=== PATIENT | female | born 1955 | race African-American/Black ===

== ENCOUNTER 2018-08-19 19:15 | Inpatient (IN) | payer MEDICAID ==
[~2018-08-19] VITALS: Ht 167.6 cm; Wt 102.0 kg
[2018-08-19] MEDS ORDERED: MORPHINE SULFATE 4 MG/ML SYR/VIAL IV ONE (22:00)
[2018-08-19] MEDS ORDERED: ONDANSETRON HCL 4 MG/2 ML VIAL IV ONE (22:00)
[2018-08-19 22:50] LABS: Urine Bacteria MOD /hpf (None Seen); Urine Blood 1+ /uL (Negative); Urine Mucus FEW (None Seen); Urine Specific Gravity 1.019 (1.001-1.035); Urine WBC 42 /hpf (0 - 5)
[2018-08-19 23:03] LABS: Basophils # (auto) 0.1 uL; Basophils % (auto) 1.1 % (0.0-2.0); Eosinophils # (auto) 0.1 uL; Hematocrit 30.8 % (36.0-46.0); Lymphocytes # (auto) 1.9 uL; Lymphocytes % (auto) 36.5 % (10.0-50.0); Mean Corpuscular Hemoglobin 27.2 pg (28.0-32.0); Mean Corpuscular Hgb Conc. 32.3 g/dL (32.0-36.0); Mean Corpuscular Volume 84.1 fL (80.0-100.0); Monocytes # (auto) 0.9 uL; Monocytes % (auto) 16.8 % (0.0-12.0); Neutrophils # (auto) 2.2 uL; Neutrophils % (auto) 43.6 % (37.0-80.0); Nucleated Red Blood Cells % 0.1 %; Platelet Count (auto) 174 10^3/uL (140-450); Red Blood Cells 3.66 10^6/uL (4.0-5.20); White Blood Cell 5.1 10^3/uL (4.4-10.8)
[2018-08-19 23:13] LABS: Albumin 2.7 g/dL (3.4-5.0); BUN/Creatinine Ratio 14.2; Calcium 8.9 mg/dL (8.5-10.1); Magnesium 1.9 mg/dL (1.6-2.6); Potassium 4.4 mmol/L (3.5-5.1)
[2018-08-19 23:18] LABS: Bilirubin, Total 0.5 mg/dL (0.2-1.0); Total Protein 7.3 g/dL (6.4-8.2)
[2018-08-19 23:35] LABS: INR 1.01 (0.9-1.15); Partial Thromboplastin Time 24.6 sec (23.64-32.05)
[2018-08-20] VITALS (8 sets, daily range): BP systolic 123–149; BP diastolic 59–70
[2018-08-20] MEDS ORDERED: CEFTRIAXONE SODIUM 2 GM in D5W 5% 50 ML IV ONE (01:00)
[2018-08-20] MEDS ORDERED: cefTRIAXone 1GM/50ML D5W 100 ML IV ONE (01:09)
[2018-08-20] MEDS ORDERED: TEMAZEPAM 15 MG CAP PO PRN (01:45)
[2018-08-20] MEDS ORDERED: ONDANSETRON HCL 4 MG/2 ML VIAL IV PRN (01:45)
[2018-08-20] MEDS ORDERED: ALBUTEROL SULF 2.5 MG/0.5ML(0.5%) NEB SOLN NEB PRN (01:45)
[2018-08-20] MEDS ORDERED: DEXTROSE (50%) 50ML SYRG IV PRN (01:45)
[2018-08-20] MEDS ORDERED: ACETAMINOPHEN 500 MG TAB PO PRN (01:45)
--- NOTE | 2018-08-20 02:45 | NUR ---
MS admit from ER ZURDO CHRISTIE admitted to tele/MS. Patient oriented to ANNIE GONZALEZ, primary RN, unit, room, bed, and unit policies regarding patient care and visiting hours. Patient weighed by bedscale and encouraged to call if they need something. All questions and concerns addressed, patient verbalized understanding.
[2018-08-20] MEDS: HYDROcodone-ACET 5/325MG TAB PO PRN ×3 (02:58→21:19)
--- NOTE | 2018-08-20 05:30 | NUR ---
Rounds Patient resting in bed comfortably, with even and unlabored respirations at 16bpm. No S/S of distress/SOB or pain. Will continue to monitor changes q1hr and PRN. Call light with in reach.
[2018-08-20 05:51] LABS: Hematocrit 28.5 % (36.0-46.0); Hemoglobin 9.2 g/dL (12.2-16.2); Mean Corpuscular Hgb Conc. 32.3 g/dL (32.0-36.0); Mean Corpuscular Volume 83.5 fL (80.0-100.0); Platelet Count (auto) 154 10^3/uL (140-450); Red Blood Cells 3.41 10^6/uL (4.0-5.20); White Blood Cell 4.2 10^3/uL (4.4-10.8)
[2018-08-20 05:56] LABS: Basophils % (manual) 0 (0.0-2.0); Blast Cells 0; Eosinophils % (manual) 0 (0-7); Metamyelocytes % 0; Myelocytes % 0; Promyelocytes % 0; Reactive Lymphocytes 0
[2018-08-20 06:13] LABS: BUN/Creatinine Ratio 14.4; Calcium 8.5 mg/dL (8.5-10.1); Potassium 3.9 mmol/L (3.5-5.1)
[2018-08-20] MEDS: PANTOPRAZOLE 40 MG TAB PO SCH (06:36)
[2018-08-20] MEDS: ACCU-CHEK COMFORT CURVE STRIP VI SCH ×4 (06:36→21:06)
[2018-08-20] MEDS: InsuLIN REG 1unit/0.01ml Soln (100units/ml) SC SCH ×4 (06:43→21:10)
[2018-08-20 09:19] LABS: Band Neutrophils % (manual) 1; Lymphocytes % (manual) 39 (10.0-50.0); Monocytes % (manual) 15 (0-12)
[2018-08-20] MEDS: GABAPENTIN 300 MG CAP PO SCH ×2 (10:02→21:05)
[2018-08-20] MEDS: LOSARTAN POTASSIUM 50 MG TAB PO SCH (10:02)
--- NOTE | 2018-08-20 10:09 | NUR ---
RE: blood pressure medications bp 130/67, hr 58. carvedilol hold per hr at 58. will reassess patient.
--- NOTE | 2018-08-20 10:55 | NUR ---
Respiratory note: ASSESSED PT FOR PRN TX PT WAS ASLEEP AND ALERT NO RESP DISTRESS NOTED. HR 57, RR 16, SPO2 98% ON 2L N/C. BS ARE DIMINISHED . PT KNOWS TO HAVE RT PAGED IF TX IS NEEDED.
[2018-08-20 12:44] LABS: Phosphorus 4.5 mg/dL (2.5-4.90)
[2018-08-20] MEDS: CARVEDILOL 3.125 MG TAB PO SCH ×2 (13:29→21:05)
--- NOTE | 2018-08-20 14:15 | NUR ---
re: meals Patients family members brought the patient some fast food. Patient was seen eating a hamburger.
--- NOTE | 2018-08-20 14:20 | NUR ---
IV removal IV DC'd with clean sterile technique, catheter fully intact. Pressure dressing applied to site. Patient tolerated well. NOTE:
--- NOTE | 2018-08-20 15:20 | NUR ---
IV insertion IV access obtained, via clean sterile technique by inserting 20 gauge catheter at after attempt(s). IV secured properly. No trauma to site. Patient tolerated well. NOTE:
[2018-08-20] MEDS: SODIUM CHLORIDE 0.9% 1,000 ML IV SCH (17:08)
[2018-08-20] MEDS: FUROSEMIDE 40 MG/4 ML VIAL IV SCH (17:15)
--- NOTE | 2018-08-20 19:10 | NUR ---
Respiratory note: ASSESSED PT FOR PRN TX. PT IS CURRENTLY ON 2 L/M NC: HR 68, RR 18, SPO2 96%. MED NEB TX NOT INDICATED AT THIS TIME. PT SHOWS NO S/S OR DISTRESS. INFORMED PT IF SOB TO CONTACT RESPIRATORY FOR BREATHING TX. WILL CONTINUE TO MONITOR.
--- NOTE | 2018-08-20 19:30 | NUR ---
OPENING NOTE REPORT RECEIVED FROM DAY SHIFT RN. PATIENT IS A/OX4 RESTING IN BED. NO S/S OF DISTRESS NOTED. IV NOTED TO LEFT UPPER ARM, INTACT AND PATENT. PHYSICAL ASSESSMENT DONE-SEE INTERVENTIONS. POC FOR TONIGHT DISCUSSED AND ALL QUESTIONS ANSWERED. WILL MONITOR Q1H PRN THROUGHOUT SHIFT. CALL LIGHT WITHIN REACH.
[2018-08-20] MEDS: cefTRIAXone 1GM/50ML D5W 50 ML IV SCH (21:04)
[2018-08-20] MEDS: ATORVASTATIN 20 MG TAB PO SCH (21:05)
[2018-08-21 03:03] LABS: Creatinine, Urine 53 mg/dL (30.0-125.0); Sodium Urine 91 mmol/L (40-220)
[2018-08-21 05:17] LABS: Basophils # (auto) 0 uL; Eosinophils # (auto) 0.1 uL; Hemoglobin 9.4 g/dL (12.2-16.2); Lymphocytes % (auto) 43.3 % (10.0-50.0); Mean Corpuscular Hemoglobin 27.2 pg (28.0-32.0); Mean Corpuscular Hgb Conc. 32.6 g/dL (32.0-36.0); Mean Corpuscular Volume 83.4 fL (80.0-100.0); Monocytes # (auto) 0.7 uL; Monocytes % (auto) 15.7 % (0.0-12.0); Neutrophils # (auto) 1.7 uL; Nucleated Red Blood Cells % 0.1 %; Platelet Count (auto) 169 10^3/uL (140-450); Red Blood Cells 3.47 10^6/uL (4.0-5.20); Red Cell Distribution Width 14.8 % (11.8-14.3); White Blood Cell 4.5 10^3/uL (4.4-10.8)
[2018-08-21 05:27] VITALS: BP 146/74
[2018-08-21 05:30] LABS: Magnesium 1.9 mg/dL (1.6-2.6); Potassium 4.2 mmol/L (3.5-5.1)
[2018-08-21 05:38] LABS: Albumin 2.3 g/dL (3.4-5.0); BUN/Creatinine Ratio 16.7; Bilirubin, Total 0.2 mg/dL (0.2-1.0); Calcium 8.7 mg/dL (8.5-10.1); Total Protein 6.6 g/dL (6.4-8.2)
[2018-08-21] MEDS: ACCU-CHEK COMFORT CURVE STRIP VI SCH ×4 (06:17→21:44)
[2018-08-21] MEDS: FUROSEMIDE 40 MG/4 ML VIAL IV SCH ×2 (06:17→17:45)
[2018-08-21] MEDS: SODIUM CHLORIDE 0.9% 1,000 ML IV SCH ×2 (06:17→19:53)
[2018-08-21] MEDS: PANTOPRAZOLE 40 MG TAB PO SCH (06:17)
[2018-08-21] MEDS: InsuLIN REG 1unit/0.01ml Soln (100units/ml) SC SCH ×4 (06:20→21:51)
--- NOTE | 2018-08-21 06:20 | NUR ---
MED REFUSAL PATIENT BLOOD GLUCOSE 165 PATIENT REFUSING INSULIN PE SLIDING SCALE PATIENT STATES, "IT'LL RUN IT DOWN AND DARRIUS BEEN IN THE 30'S BEFORE" EDUCATED PATIENT ON GLYCEMIC CONTROL IMPORTANCE. PATIENT STILL REFUSING AND STATES, "IT'S NOT BAD"
[2018-08-21] MEDS: HYDROcodone-ACET 5/325MG TAB PO PRN ×2 (06:33→19:52)
--- NOTE | 2018-08-21 06:56 | NUR ---
CLOSING NOTE PATIENT IS RESTING AT THIS TIME. NO S/S OF DISTRESS. CALL LIGHT WITHIN REACH. WILL ENDORSE CARE TO AM NURSE.
[2018-08-21] MEDS ORDERED: GABA300C10 PO (07:12)
[2018-08-21] MEDS ORDERED: LOSA-49 PO (07:12)
[2018-08-21] MEDS ORDERED: ATOR40TA52 PO (07:12)
[2018-08-21] MEDS ORDERED: ERGO1CAP23 PO (07:13)
[2018-08-21 08:18] VITALS: BP 120/83
[2018-08-21 08:30] VITALS: BP 146/66
[2018-08-21] MEDS ORDERED: ALBUMIN 25% 100 ML IV ONE (08:30)
[2018-08-21] MEDS: LOSARTAN POTASSIUM 50 MG TAB PO SCH (10:33)
[2018-08-21] MEDS: GABAPENTIN 300 MG CAP PO SCH ×2 (10:34→21:44)
[2018-08-21] MEDS: CARVEDILOL 3.125 MG TAB PO SCH ×2 (10:35→21:43)
[2018-08-21] MEDS: ENOXAPARIN SOD 30 MG/0.3 ML SYRINGE SC SCH (10:36)
--- NOTE | 2018-08-21 12:15 | NUR ---
RE: URINE INFORMED PATIENT THAT WE NEED TO COLLECT URINE AND MONITOR THE URINE OUT PUT, THUS NEEDS TO MATURATE ON THE COLLECTING HAT IN THE BATHROOM. EDUCATED ON THE REASONS WE ARE COLLECTING IT.
[2018-08-21 12:34] VITALS: BP 161/71
[2018-08-21 16:58] VITALS: BP 154/78
--- NOTE | 2018-08-21 19:20 | NUR ---
OPENING NOTE REPORT RECEIVED FROM DAY SHIFT RN PATIENT IS A/OX4 RESTING IN BED. NO S/S OF DISTRESS NOTED. PHYSICAL ASSESSMENT DONE-SEE INTERVENTIONS.POC FOR TONIGHT DISCUSSED, ALL QUESTIONS ANSWERED. WILL MONITOR Q1H PRN THROUGHOUT SHIFT. CALL LIGHT WITHIN REACH.
--- NOTE | 2018-08-21 20:44 | NUR ---
ASSESSED PT @ THIS TIME FOR PRN MED NEB TX. PT IS AWAKE AND ALERT AND SITTING UP IN BED. SHE STATES HER BREATHING IS DOING FINE. CURRENTLY ON R/A SPO2 93%, HR 77, RR 18 AND BS ARE DIMINISHED T/O. NO DISTRESS NOTED. SHE IS AWARE TO CALL IF SHE FEELS SOB.
[2018-08-21] MEDS: cefTRIAXone 1GM/50ML D5W 50 ML IV SCH (21:42)
[2018-08-21] MEDS: ATORVASTATIN 20 MG TAB PO SCH (21:43)
[2018-08-21 22:00] VITALS: BP 165/78
[2018-08-22 05:00] VITALS: BP 168/76
[2018-08-22] MEDS: FUROSEMIDE 40 MG/4 ML VIAL IV SCH (06:03)
[2018-08-22] MEDS: ACCU-CHEK COMFORT CURVE STRIP VI SCH ×3 (06:03→17:40)
[2018-08-22] MEDS: PANTOPRAZOLE 40 MG TAB PO SCH (06:03)
[2018-08-22] MEDS: InsuLIN REG 1unit/0.01ml Soln (100units/ml) SC SCH ×3 (06:21→17:00)
[2018-08-22 06:26] LABS: Potassium 3.6 mmol/L (3.5-5.1)
[2018-08-22 06:35] LABS: BUN/Creatinine Ratio 20.6; Calcium 8.9 mg/dL (8.5-10.1); Magnesium 1.8 mg/dL (1.6-2.6); Phosphorus 3.3 mg/dL (2.5-4.90)
--- NOTE | 2018-08-22 06:53 | NUR ---
CLOSING PATIENT IS SLEEPING AT THIS TIME. NO S/S OF DISTRESS NOTED. AWAITING NEPHRO CONSULT FOR TODAY. CALL LIGHT WITHIN REACH. WILL ENDORSE CARE TO DAY SHIFT RN.
--- NOTE | 2018-08-22 07:30 | NUR ---
Opening Shift Note Assumed care of patient, awake and alert. No S/S of distress/SOB or pain. Instructed on POC and to call for assist PRN, will continue to monitor for changes Q1hr and PRN.
[2018-08-22 09:00] VITALS: BP 180/81
[2018-08-22] MEDS: GABAPENTIN 300 MG CAP PO SCH (11:16)
[2018-08-22] MEDS: ENOXAPARIN SOD 30 MG/0.3 ML SYRINGE SC SCH (11:17)
[2018-08-22] MEDS: LOSARTAN POTASSIUM 50 MG TAB PO SCH (11:17)
[2018-08-22] MEDS: HYDROcodone-ACET 5/325MG TAB PO PRN (11:18)
--- NOTE | 2018-08-22 11:50 | NUR ---
Nutrition Assessment Notes please see attached link for complete assessment Est. Needs ABW [id number] kcal (20-23 kcal/kgBW), 64-80 gms pro (0.8-1.0 gms/kgBW r/t elev RFT CKD). Will continue to monitor pertinent labs and reassess nutrient need prn Addendum: 08/22/18 at [address] Amended: Links added.
--- NOTE | 2018-08-22 12:26 | NUR ---
BLOOD PRESSURE 205/85 DR. PEOPLES PAGED. AWAITING ORDERS.
[2018-08-22 13:00] VITALS: BP 205/85
[2018-08-22] MEDS ORDERED: METOPROLOL TARTRATE 1MG/1ML-5ML VIAL IV ONE (13:00)
--- NOTE | 2018-08-22 13:00 | NUR ---
Respiratory note: PT ASSESSED FOR PRN MEDNEB TX. NO RESPIRATORY DISTRESS NOTED. SPO2 96% ON RA HR 61 RR 20 B/S CLEAR. PT AWARE TO HAVE RT PAGED IF THEY BECOME SOB.
--- NOTE | 2018-08-22 14:28 | NUR ---
SPOKE WITH DR. BUSBY. HE INFORMED ME THAT THE PATIENT'S INSURANCE IS OUT OF TOWN. THE PATIENT NEEDS TO SEE A PRIMARY AND BE REFERED TO NEPHROLOGY. DR. BUSBY REQUESTED THAT THE PATIENT'S DISCHARGE BE HELD UNTIL THIS INSURANCE ISSUE IS WORKED OUT. RECOMMENDS SOCIAL SERVICE CONSULT. DR. PEOPLES INFORMED.
--- NOTE | 2018-08-22 14:35 | NUR ---
SPOKE WITH DR. PEOPLES. HE DOES NOT WANT TO HOLD THE DISCHARGE. THE PATIENT IS DIRECTED TO GET IN CONTACT WITH DR. SANDERS'S OFFICE FOR FOLLOW UP AND REFERRAL TO NEPHROLOGY.
[2018-08-22 16:41] VITALS: BP 175/83
--- NOTE | 2018-08-22 17:36 | NUR ---
Discharge instructions given as ordered. Encourage to follow up with Dr. Theodore as instructed. All questions and concerns addressed. Patient verbalized understanding. IV removed with catheter intact, pressure dressing applied. Patient taken to vehicle via wheelchair with all personal belongings, accompanied by family member. No distress noted at time of departure.
[2018-08-22] MEDS ORDERED: CARVEDILOL 3.125 MG TAB PO SCH (22:00)
== END 2018-08-22 17:36 | disposition home or self-care (01) | DRG 469 ==
LOC: ER 19:32 → OVERFLOW 19:33 → WEST WING 08-20 02:34
PROVIDERS: ADMIT Nurse Practitioner Family; ATTEND Internal Medicine
DX: N17.9 Acute kidney failure, unspecified (principal); E11.40 Type 2 diabetes mellitus with diabetic neuropathy, unspecified; E11.21 Type 2 diabetes mellitus with diabetic nephropathy; E44.0 Moderate protein-calorie malnutrition; N12 Tubulo-interstitial nephritis, not specified as acute or chronic; N18.4 Chronic kidney disease, stage 4 (severe); E11.65 Type 2 diabetes mellitus with hyperglycemia; E11.22 Type 2 diabetes mellitus with diabetic chronic kidney disease; E66.9 Obesity, unspecified; M43.16 Spondylolisthesis, lumbar region; M48.061 Spinal stenosis, lumbar region without neurogenic claudication; D63.8 Anemia in other chronic diseases classified elsewhere; I13.10 Hypertensive heart and chronic kidney disease without heart failure, with stage 1 through stage 4 chronic kidney disease, or unspecified chronic kidney disease; M17.0 Bilateral primary osteoarthritis of knee; Z79.4 Long term (current) use of insulin; Z83.3 Family history of diabetes mellitus; Z68.34 Body mass index [BMI] 34.0-34.9, adult; Z90.11 Acquired absence of right breast and nipple; Z90.49 Acquired absence of other specified parts of digestive tract
CPT/HCPCS: 36415; 71046; 72131; 74176; 76775; 80048; 80053; 80061; 81001; 82043; 82150; 82306; 82570; 82607; 82962; 83036; 83690; 83735; 83880; 83970; 84100; 84300; 85007; 85025; 85027; 85610; 85730; 87086; 93306; 96365; 96375; G0378; J0696; J1815; J2405; J7060; P9047

== ENCOUNTER 2018-08-28 13:50 | Emergency (ER) | payer MEDICAID ==
[~2018-08-28] VITALS: Ht 167.6 cm; Wt 98.9 kg
[~2018-08-28 13:50] MED LIST: ATOR40TA52 PO; ERGO1CAP23 PO; GABA300C10 PO; LOSA-49 PO
[2018-08-28 17:10] VITALS: BP 142/69
[2018-08-28 17:47] LABS: Urine Bacteria NONE SEEN /hpf (None Seen); Urine Blood TRACE /uL (Negative); Urine Hyaline Cast FEW /lpf (0 - 2); Urine Specific Gravity 1.012 (1.001-1.035); Urine WBC 1 /hpf (0 - 5)
[2018-08-28] MEDS ORDERED: HYDROcodone-ACET 5/325MG TAB PO ONE (18:00)
== END 2018-08-28 18:54 | disposition home or self-care (01) ==
LOC: ER 13:58
DX: N83.209 Unspecified ovarian cyst, unspecified side (principal); E11.22 Type 2 diabetes mellitus with diabetic chronic kidney disease; I12.9 Hypertensive chronic kidney disease with stage 1 through stage 4 chronic kidney disease, or unspecified chronic kidney disease; N18.3 Chronic kidney disease, stage 3 (moderate); Z79.899 Other long term (current) drug therapy; Z90.49 Acquired absence of other specified parts of digestive tract
CPT/HCPCS: 81001

== ENCOUNTER 2019-01-16 17:01 | Emergency (ER) | payer MEDICAID ==
[~2019-01-16] VITALS: Ht 167.6 cm; Wt 97.5 kg
[~2019-01-16 17:01] MED LIST changes: +LOSA-39 PO; -LOSA-49 PO
[2019-01-16 18:29] LABS: Urine Bacteria FEW /hpf (None Seen); Urine Blood TRACE /uL (Negative); Urine Specific Gravity 1.013 (1.001-1.035); Urine WBC 1 /hpf (0 - 5)
[2019-01-16 18:31] LABS: Basophils # (auto) 0.1 uL; Basophils % (auto) 1.5 % (0.0-2.0); Eosinophils # (auto) 0.2 uL; Eosinophils % (auto) 2.7 % (0.0-7.0); Hematocrit 33.5 % (36.0-46.0); Hemoglobin 10.9 g/dL (12.2-16.2); Lymphocytes # (auto) 1.8 uL; Lymphocytes % (auto) 31.3 % (10.0-50.0); Mean Corpuscular Hemoglobin 27.3 pg (28.0-32.0); Mean Corpuscular Hgb Conc. 32.5 g/dL (32.0-36.0); Mean Corpuscular Volume 83.9 fL (80.0-100.0); Monocytes # (auto) 0.9 uL; Monocytes % (auto) 16.2 % (0.0-12.0); Neutrophils # (auto) 2.7 uL; Neutrophils % (auto) 48.3 % (37.0-80.0); Nucleated Red Blood Cells % 0.1 %; Platelet Count (auto) 171 10^3/uL (140-450); Red Blood Cells 3.99 10^6/uL (4.0-5.20); White Blood Cell 5.7 10^3/uL (4.4-10.8)
[2019-01-16 18:40] LABS: Albumin 3.1 g/dL (3.4-5.0); Calcium 8.8 mg/dL (8.5-10.1); Potassium 4.5 mmol/L (3.5-5.1)
[2019-01-16 18:47] LABS: BUN/Creatinine Ratio 18.1; Bilirubin, Total 0.3 mg/dL (0.2-1.0); Total Protein 7.8 g/dL (6.4-8.2)
== END 2019-01-16 20:53 | disposition home or self-care (01) ==
LOC: ER 17:07
DX: K59.00 Constipation, unspecified (principal); E11.22 Type 2 diabetes mellitus with diabetic chronic kidney disease; I12.9 Hypertensive chronic kidney disease with stage 1 through stage 4 chronic kidney disease, or unspecified chronic kidney disease; N18.9 Chronic kidney disease, unspecified; Z85.3 Personal history of malignant neoplasm of breast; Z90.49 Acquired absence of other specified parts of digestive tract; Z79.899 Other long term (current) drug therapy
CPT/HCPCS: 36415; 74176; 80053; 81001; 82962; 83690; 85025; 93005

== ENCOUNTER 2019-05-16 13:32 | Emergency (ER) | payer MEDICARE, MEDICAID ==
[~2019-05-16] VITALS: Ht 167.6 cm; Wt 112.0 kg
[2019-05-16 14:08] VITALS: BP 157/82
[2019-05-16] MEDS ORDERED: KETOROLAC TROMETH 60MG/2ML VIAL IM ONE (15:00)
[2019-05-16] MEDS ORDERED: ACETAMINOPHEN 500 MG TAB PO ONE (15:00)
== END 2019-05-16 15:30 | disposition home or self-care (01) ==
LOC: ER 13:32
DX: T78.40XA Allergy, unspecified, initial encounter (principal); R51 Headache; R07.89 Other chest pain; R09.81 Nasal congestion; I12.9 Hypertensive chronic kidney disease with stage 1 through stage 4 chronic kidney disease, or unspecified chronic kidney disease; E11.22 Type 2 diabetes mellitus with diabetic chronic kidney disease; N18.9 Chronic kidney disease, unspecified; X58.XXXA Exposure to other specified factors, initial encounter

== ENCOUNTER 2019-08-10 14:50 | Emergency (ER) | payer OTHER, MEDICAID ==
[~2019-08-10] VITALS: Ht 167.6 cm; Wt 95.3 kg
[2019-08-10] MEDS ORDERED: SODIUM CHLORIDE 0.9% 1,000 ML IVB ONE (15:28)
[2019-08-10] MEDS ORDERED: MORPHINE SULFATE 4 MG/ML SYR/VIAL IV ONE (15:30)
[2019-08-10] MEDS ORDERED: ONDANSETRON HCL 4 MG/2 ML VIAL IV ONE (15:30)
[2019-08-10] MEDS ORDERED: KETOROLAC TROMETH 30 MG/ML 1ML VIAL IV ONE (15:30)
[2019-08-10 15:48] LABS: White Blood Cell 3.9 10^3/uL (4.4-10.8)
[2019-08-10 15:49] LABS: Hemoglobin 10.5 g/dL (12.2-16.2); Mean Corpuscular Hemoglobin 27.4 pg (28.0-32.0); Mean Corpuscular Hgb Conc. 33.9 g/dL (32.0-36.0); Platelet Count (auto) 209 10^3/uL (140-450); Red Blood Cells 3.82 10^6/uL (4.0-5.20); Red Cell Distribution Width 16.3 % (11.8-14.3)
[2019-08-10 15:53] LABS: Band Neutrophils % (manual) 0; Basophils % (manual) 0 (0.0-2.0); Blast Cells 0; Metamyelocytes % 0; Myelocytes % 0; Promyelocytes % 0; Reactive Lymphocytes 0
[2019-08-10 15:57] LABS: Potassium 3.7 mmol/L (3.5-5.1)
[2019-08-10 15:58] LABS: Calcium 8.7 mg/dL (8.5-10.1)
[2019-08-10 16:01] LABS: BUN/Creatinine Ratio 10.5; Bilirubin, Total 0.4 mg/dL (0.2-1.0); Total Protein 7.6 g/dL (6.4-8.2)
[2019-08-10 17:06] LABS: Eosinophils % (manual) 2 (0-7); Lymphocytes % (manual) 34 (10.0-50.0); Monocytes % (manual) 14 (0-12)
[2019-08-10] MEDS ORDERED: cloNIDine HCL 0.1 MG TAB PO ONE (21:45)
[2019-08-10 22:50] VITALS: BP 185/50
== END 2019-08-10 23:00 | disposition home or self-care (01) ==
LOC: ER 14:50
DX: R10.9 Unspecified abdominal pain (principal); I12.9 Hypertensive chronic kidney disease with stage 1 through stage 4 chronic kidney disease, or unspecified chronic kidney disease; E11.22 Type 2 diabetes mellitus with diabetic chronic kidney disease; N18.9 Chronic kidney disease, unspecified
CPT/HCPCS: 36415; 74176; 80053; 83690; 85007; 85027

== ENCOUNTER 2020-04-13 11:22 | Inpatient (IN) | payer OTHER, MEDICAID ==
[~2020-04-13] VITALS: Ht 167.6 cm; Wt 77.1 kg
[2020-04-13 13:16] LABS: Basophils # (auto) 0 10 ^3/uL (0-0.2); Eosinophils # (auto) 0.1 10 ^3/uL (0-0.8); Hemoglobin 9.9 g/dL (12.2-16.2); Lymphocytes # (auto) 1.4 10 ^3/uL (0.4-5.4); Mean Corpuscular Hemoglobin 26.4 pg (28.0-32.0); Monocytes # (auto) 0.6 10 ^3/uL (0-1.3); Neutrophils # (auto) 2.4 10 ^3/uL (1.6-8.6); Platelet Count (auto) 194 10^3/uL (140-450); White Blood Cell 4.5 10^3/uL (4.4-10.8)
[2020-04-13 13:18] LABS: Eosinophils % (auto) 2.3 % (0.0-7.0); Hematocrit 30.7 % (36.0-46.0); Lymphocytes % (auto) 30.5 % (10.0-50.0); Mean Corpuscular Hgb Conc. 32.2 g/dL (32.0-36.0); Monocytes % (auto) 13.6 % (0.0-12.0); Neutrophils % (auto) 52.6 % (37.0-80.0); Nucleated Red Blood Cells % 0.1 %; Red Blood Cells 3.74 10^6/uL (4.0-5.20); Red Cell Distribution Width 17.9 % (11.8-14.3)
[2020-04-13] MEDS ORDERED: MORPHINE SULF INJ 2 MG/ML SYRINGE 1ML IV ONE (13:30)
[2020-04-13] MEDS ORDERED: ONDANSETRON HCL 4 MG/2 ML VIAL IV ONE (13:30)
[2020-04-13 13:46] LABS: Albumin 3.2 g/dL (3.4-5.0); Calcium 9.1 mg/dL (8.5-10.1); Potassium 3.8 mmol/L (3.5-5.1)
[2020-04-13 13:49] LABS: BUN/Creatinine Ratio 13.4; Bilirubin, Total 0.4 mg/dL (0.2-1.0); Total Protein 8.2 g/dL (6.4-8.2)
[2020-04-13 14:12] LABS: Magnesium 1.6 mg/dL (1.6-2.6)
[2020-04-13 15:16] LABS: Urine Bacteria FEW /hpf (None Seen); Urine Blood TRACE /uL (Negative); Urine Specific Gravity 1.013 (1.001-1.035); Urine WBC 1 /hpf (0 - 5)
[2020-04-13] MEDS ORDERED: MORPHINE SULF INJ 2 MG/ML SYRINGE 1ML IV PRN ×2 (15:45→17:00)
[2020-04-13] MEDS ORDERED: hydrALAZINE HCL 20 MG/ML VL IV ONE (15:45)
[2020-04-13] MEDS ORDERED: NITROGLYCERIN 0.4 MG SL TAB SL PRN (15:45)
[2020-04-13] MEDS ORDERED: AMLO-489 PO (16:28)
[2020-04-13] MEDS ORDERED: CARV3.1240 PO (16:31)
[2020-04-13] MEDS ORDERED: ALBUTEROL SULF 2.5 MG/0.5ML(0.5%) NEB SOLN NEB PRN (17:00)
[2020-04-13] MEDS ORDERED: ACETAMINOPHEN 500 MG TAB PO PRN (17:00)
[2020-04-13] MEDS ORDERED: DEXTROSE (50%) 50ML SYRG IV PRN (17:00)
[2020-04-13] MEDS ORDERED: traMADol HCL 50 MG TAB PO PRN (17:00)
[2020-04-13] MEDS ORDERED: cefTRIAXone 1GM/50ML D5W 50 ML IV ONE (17:00)
[2020-04-13] MEDS: SODIUM CHLORIDE 0.9% 1,000 ML IV SCH (17:00)
[2020-04-13] MEDS ORDERED: TEMAZEPAM 15 MG CAP PO PRN (17:00)
[2020-04-13] MEDS ORDERED: ONDANSETRON HCL 4 MG/2 ML VIAL IV PRN (17:00)
[2020-04-13] MEDS: FAMOTIDINE 20 MG TAB PO SCH (17:45)
[2020-04-13] MEDS: ACCU-CHEK COMFORT CURVE STRIP VI SCH ×2 (18:08→21:46)
[2020-04-13] MEDS: ALBUTEROL SULF 2.5 MG/0.5ML(0.5%) NEB SOLN NEB SCH ×2 (18:09→23:53)
[2020-04-13] MEDS: IPRATROPIUM BROM 0.5 MG/2.5ML INH SOL NEB SCH ×2 (18:09→23:53)
[2020-04-13] MEDS: InsuLIN REG 1unit/0.01ml Soln (100units/ml) SC SCH ×2 (18:14→21:49)
[2020-04-13 20:37] VITALS: BP 160/70
[2020-04-13 21:15] VITALS: BP 158/80
[2020-04-13 23:39] VITALS: BP 158/80
[2020-04-14] MEDS: hydrALAZINE HCL 20 MG/ML VL IV PRN ×2 (04:56→17:01)
[2020-04-14 05:07] VITALS: BP 143/76
[2020-04-14 06:22] LABS: Basophils # (auto) 0.1 10 ^3/uL (0-0.2); Basophils % (auto) 1.1 % (0.0-2.0); Eosinophils # (auto) 0.2 10 ^3/uL (0-0.8); Monocytes # (auto) 1.6 10 ^3/uL (0-1.3); Neutrophils # (auto) 4.2 10 ^3/uL (1.6-8.6)
[2020-04-14 06:30] LABS: Chloride 115 mmol/L (98-107); Potassium 3.6 mmol/L (3.5-5.1); Sodium 141 mmol/L (136-145)
[2020-04-14] MEDS: ALBUTEROL SULF 2.5 MG/0.5ML(0.5%) NEB SOLN NEB SCH ×3 (06:32→18:40)
[2020-04-14] MEDS: IPRATROPIUM BROM 0.5 MG/2.5ML INH SOL NEB SCH ×3 (06:32→18:40)
[2020-04-14 06:34] LABS: Eosinophils % (auto) 2.7 % (0.0-7.0); Hematocrit 28.5 % (36.0-46.0); Hemoglobin 9.7 g/dL (12.2-16.2); Lymphocytes # (auto) 3.1 10 ^3/uL (0.4-5.4); Lymphocytes % (auto) 33.9 % (10.0-50.0); Mean Corpuscular Hemoglobin 27.4 pg (28.0-32.0); Mean Corpuscular Hgb Conc. 33.9 g/dL (32.0-36.0); Mean Corpuscular Volume 80.7 fL (80.0-100.0); Neutrophils % (auto) 45.3 % (37.0-80.0); Nucleated Red Blood Cells % 0.3 %; Platelet Count (auto) 157 10^3/uL (140-450); Red Blood Cells 3.53 10^6/uL (4.0-5.20); Red Cell Distribution Width 18.4 % (11.8-14.3); White Blood Cell 9.3 10^3/uL (4.4-10.8)
[2020-04-14] MEDS: InsuLIN REG 1unit/0.01ml Soln (100units/ml) SC SCH ×4 (06:37→21:55)
[2020-04-14] MEDS: ACCU-CHEK COMFORT CURVE STRIP VI SCH ×4 (06:37→21:54)
[2020-04-14 06:50] LABS: Alanine Aminotransferase 19 U/L (13-56); Albumin 3.2 g/dL (3.4-5.0); Alkaline Phosphatase 133 U/L (45-117); Anion Gap 7 (5-15); Aspartate Aminotransferase 15 U/L (15-37); BUN/Creatinine Ratio 12.9; Bilirubin, Total 0.3 mg/dL (0.2-1.0); Blood Urea Nitrogen 39 mg/dL (7-18); Calcium 8.8 mg/dL (8.5-10.1); Carbon Dioxide 19 mmol/L (21-32); GFR African American 20 mL/min; GFR Non-African American 16 mL/min; Glucose 74 mg/dL (74-106); Total Protein 8.4 g/dL (6.4-8.2)
[2020-04-14] MEDS: SODIUM CHLORIDE 0.9% 1,000 ML IV SCH ×2 (07:36→19:40)
[2020-04-14] MEDS: cefTRIAXone 1GM/50ML D5W 50 ML IV SCH (09:14)
[2020-04-14] MEDS: ASPirin 81 mg TAB PO SCH (09:15)
[2020-04-14] MEDS: LOSARTAN POTASSIUM 50 MG TAB PO SCH (09:15)
[2020-04-14] MEDS: CARVEDILOL 3.125 MG TAB PO SCH (09:15)
[2020-04-14] MEDS: FAMOTIDINE 20 MG TAB PO SCH (09:16)
[2020-04-14] MEDS: amLODIPine BESYLATE 5 MG TAB PO SCH (09:16)
[2020-04-14] MEDS: ATORVASTATIN 20 MG TAB PO SCH (09:16)
[2020-04-14 09:17] VITALS: BP 160/70
[2020-04-14] MEDS: NITROGLYCERIN 0.2MG/HR TOPICAL PATCH TD SCH (09:17)
[2020-04-14 13:08] VITALS: BP 142/75
[2020-04-14 17:01] VITALS: BP 155/86
[2020-04-14] MEDS: LACTULOSE 20Gm/30ML SOLN PO PRN (20:07)
[2020-04-14 22:49] VITALS: BP 141/71
[2020-04-15] MEDS: ALBUTEROL SULF 2.5 MG/0.5ML(0.5%) NEB SOLN NEB SCH ×4 (00:19→18:20)
[2020-04-15] MEDS: IPRATROPIUM BROM 0.5 MG/2.5ML INH SOL NEB SCH ×4 (00:19→18:20)
[2020-04-15 04:34] VITALS: BP 145/76
[2020-04-15] MEDS: InsuLIN REG 1unit/0.01ml Soln (100units/ml) SC SCH ×4 (06:54→21:16)
[2020-04-15] MEDS: ACCU-CHEK COMFORT CURVE STRIP VI SCH ×4 (06:54→21:06)
[2020-04-15] MEDS: SODIUM CHLORIDE 0.9% 1,000 ML IV SCH (08:56)
[2020-04-15] MEDS: ASPirin 81 mg TAB PO SCH (08:57)
[2020-04-15] MEDS: LOSARTAN POTASSIUM 50 MG TAB PO SCH (08:57)
[2020-04-15] MEDS: CARVEDILOL 3.125 MG TAB PO SCH (08:57)
[2020-04-15] MEDS: ATORVASTATIN 20 MG TAB PO SCH (08:58)
[2020-04-15] MEDS: FAMOTIDINE 20 MG TAB PO SCH (08:58)
[2020-04-15] MEDS: NITROGLYCERIN 0.2MG/HR TOPICAL PATCH TD SCH (08:58)
[2020-04-15] MEDS: amLODIPine BESYLATE 5 MG TAB PO SCH (08:58)
[2020-04-15] MEDS: cefTRIAXone 1GM/50ML D5W 50 ML IV SCH (08:59)
[2020-04-15 09:00] VITALS: BP 170/84
[2020-04-15] MEDS: hydrALAZINE HCL 20 MG/ML VL IV PRN (12:44)
[2020-04-15 12:49] VITALS: BP 157/83
[2020-04-15 14:31] LABS: Calcium 8.7 mg/dL (8.5-10.1); Potassium 4.3 mmol/L (3.5-5.1)
[2020-04-15 14:33] LABS: BUN/Creatinine Ratio 13.4
[2020-04-15] MEDS ORDERED: BUMETANIDE 2.5mg/10ml (0.25 mg/ml) INJ IV ONE (15:30)
[2020-04-15 16:56] VITALS: BP 133/74
[2020-04-15 21:19] VITALS: BP 152/80
[2020-04-16] VITALS (7 sets, daily range): BP systolic 131–151; BP diastolic 68–78
[2020-04-16] MEDS: ALBUTEROL SULF 2.5 MG/0.5ML(0.5%) NEB SOLN NEB SCH ×4 (00:16→19:32)
[2020-04-16] MEDS: IPRATROPIUM BROM 0.5 MG/2.5ML INH SOL NEB SCH ×4 (00:16→19:32)
[2020-04-16 05:46] LABS: Hematocrit 23.5 % (36.0-46.0); Hemoglobin 7.9 g/dL (12.2-16.2); Mean Corpuscular Hemoglobin 27.5 pg (28.0-32.0); Mean Corpuscular Hgb Conc. 33.5 g/dL (32.0-36.0); Platelet Count (auto) 140 10^3/uL (140-450); Red Blood Cells 2.86 10^6/uL (4.0-5.20); Red Cell Distribution Width 17.9 % (11.8-14.3); White Blood Cell 4.9 10^3/uL (4.4-10.8)
[2020-04-16 06:03] LABS: BUN/Creatinine Ratio 14.2; Calcium 8.9 mg/dL (8.5-10.1); Phosphorus 3.8 mg/dL (2.5-4.90)
[2020-04-16 06:23] LABS: Band Neutrophils % (manual) 0; Basophils % (manual) 0 (0.0-2.0); Blast Cells 0; Metamyelocytes % 0; Myelocytes % 0; Promyelocytes % 0; Reactive Lymphocytes 0
[2020-04-16] MEDS: ACCU-CHEK COMFORT CURVE STRIP VI SCH ×4 (06:34→21:15)
[2020-04-16] MEDS: InsuLIN REG 1unit/0.01ml Soln (100units/ml) SC SCH ×4 (06:34→21:14)
[2020-04-16 07:17] LABS: Eosinophils % (manual) 3 (0-7); Lymphocytes % (manual) 40 (10.0-50.0); Monocytes % (manual) 9 (0-12)
[2020-04-16] MEDS: ASPirin 81 mg TAB PO SCH (09:43)
[2020-04-16] MEDS: cefTRIAXone 1GM/50ML D5W 50 ML IV SCH (09:43)
[2020-04-16] MEDS: ATORVASTATIN 20 MG TAB PO SCH (09:44)
[2020-04-16] MEDS: LOSARTAN POTASSIUM 50 MG TAB PO SCH (09:44)
[2020-04-16] MEDS: CARVEDILOL 3.125 MG TAB PO SCH (09:44)
[2020-04-16] MEDS: FAMOTIDINE 20 MG TAB PO SCH (09:45)
[2020-04-16] MEDS: amLODIPine BESYLATE 5 MG TAB PO SCH (09:45)
[2020-04-16] MEDS: NITROGLYCERIN 0.2MG/HR TOPICAL PATCH TD SCH (09:46)
[2020-04-16 10:55] LABS: Protein, Urine 198.2 mg/dL (0.0-11.9)
[2020-04-16] MEDS: hydrALAZINE HCL 25 MG TAB PO SCH ×3 (12:43→23:12)
[2020-04-17] MEDS: ALBUTEROL SULF 2.5 MG/0.5ML(0.5%) NEB SOLN NEB SCH ×4 (00:21→19:31)
[2020-04-17] MEDS: IPRATROPIUM BROM 0.5 MG/2.5ML INH SOL NEB SCH ×4 (00:21→19:31)
[2020-04-17 05:17] VITALS: BP 142/67
[2020-04-17] MEDS: hydrALAZINE HCL 25 MG TAB PO SCH ×5 (05:42→23:42)
[2020-04-17] MEDS: ACCU-CHEK COMFORT CURVE STRIP VI SCH ×4 (05:53→21:32)
[2020-04-17] MEDS: InsuLIN REG 1unit/0.01ml Soln (100units/ml) SC SCH ×4 (05:53→22:07)
[2020-04-17 07:40] LABS: Potassium 3.9 mmol/L (3.5-5.1)
[2020-04-17 07:43] LABS: BUN/Creatinine Ratio 14.6; Calcium 8.7 mg/dL (8.5-10.1)
[2020-04-17 09:00] VITALS: BP 181/75
[2020-04-17] MEDS: ASPirin 81 mg TAB PO SCH (09:53)
[2020-04-17] MEDS: ATORVASTATIN 20 MG TAB PO SCH (09:53)
[2020-04-17] MEDS: FAMOTIDINE 20 MG TAB PO SCH (09:54)
[2020-04-17] MEDS: amLODIPine BESYLATE 5 MG TAB PO SCH (09:54)
[2020-04-17] MEDS: CARVEDILOL 3.125 MG TAB PO SCH (09:54)
[2020-04-17] MEDS: NITROGLYCERIN 0.2MG/HR TOPICAL PATCH TD SCH (09:56)
[2020-04-17] MEDS: ISOSORBIDE MONONITRATE ER 60 MG TAB PO SCH (11:14)
[2020-04-17 12:52] VITALS: BP 149/76
[2020-04-17] MEDS ORDERED: FUROSEMIDE 100 MG/10ML VIAL IV ONE (13:45)
[2020-04-17 15:23] LABS: Hemoglobin 7.9 g/dL (12.2-16.2)
[2020-04-17 15:24] LABS: Hematocrit 24.2 % (36.0-46.0); Mean Corpuscular Hemoglobin 26.5 pg (28.0-32.0); Mean Corpuscular Hgb Conc. 32.5 g/dL (32.0-36.0); Mean Corpuscular Volume 81.6 fL (80.0-100.0); Platelet Count (auto) 149 10^3/uL (140-450); Red Blood Cells 2.97 10^6/uL (4.0-5.20); Red Cell Distribution Width 17.9 % (11.8-14.3); White Blood Cell 5.4 10^3/uL (4.4-10.8)
[2020-04-17 15:35] LABS: Basophils % (manual) 0 (0.0-2.0); Blast Cells 0; Metamyelocytes % 0; Myelocytes % 0; Promyelocytes % 0; Reactive Lymphocytes 0
[2020-04-17 15:59] LABS: Band Neutrophils % (manual) 1; Eosinophils % (manual) 5 (0-7); Lymphocytes % (manual) 33 (10.0-50.0); Monocytes % (manual) 16 (0-12)
[2020-04-17 17:00] VITALS: BP 140/74
[2020-04-17] MEDS: LACTULOSE 20Gm/30ML SOLN PO PRN (17:58)
[2020-04-17 22:31] VITALS: BP 144/77
[2020-04-18] MEDS: hydrALAZINE HCL 25 MG TAB PO SCH ×2 (05:43→11:41)
[2020-04-18 05:53] VITALS: BP 122/71
[2020-04-18] MEDS: IPRATROPIUM BROM 0.5 MG/2.5ML INH SOL NEB SCH ×2 (06:00)
[2020-04-18] MEDS: ALBUTEROL SULF 2.5 MG/0.5ML(0.5%) NEB SOLN NEB SCH ×2 (06:00)
[2020-04-18] MEDS: ACCU-CHEK COMFORT CURVE STRIP VI SCH ×2 (06:08→11:20)
[2020-04-18] MEDS: InsuLIN REG 1unit/0.01ml Soln (100units/ml) SC SCH ×2 (06:08→11:44)
[2020-04-18 06:17] LABS: BUN/Creatinine Ratio 15.5; Calcium 8.8 mg/dL (8.5-10.1)
[2020-04-18 09:00] VITALS: BP 147/82
[2020-04-18] MEDS: ATORVASTATIN 20 MG TAB PO SCH (09:06)
[2020-04-18] MEDS: ASPirin 81 mg TAB PO SCH (09:06)
[2020-04-18] MEDS: FAMOTIDINE 20 MG TAB PO SCH (09:06)
[2020-04-18] MEDS: CARVEDILOL 3.125 MG TAB PO SCH (09:08)
[2020-04-18] MEDS: ISOSORBIDE MONONITRATE ER 60 MG TAB PO SCH (09:08)
[2020-04-18] MEDS: amLODIPine BESYLATE 5 MG TAB PO SCH (09:09)
[2020-04-18] MEDS: NITROGLYCERIN 0.2MG/HR TOPICAL PATCH TD SCH (09:09)
[2020-04-18 13:00] VITALS: BP 140/70
[2020-04-18 16:38] VITALS: BP 143/71
== END 2020-04-18 16:35 | disposition home or self-care (01) | DRG 315 ==
LOC: ER 11:22 → TELE 11:23 → TELE-EAST 21:10 → TELE-WESTW 04-14 05:14
PROVIDERS: ADMIT Internal Medicine; ATTEND Family Medicine
DX: I31.3 Pericardial effusion (noninflammatory) (principal); I13.0 Hypertensive heart and chronic kidney disease with heart failure and stage 1 through stage 4 chronic kidney disease, or unspecified chronic kidney disease; N17.9 Acute kidney failure, unspecified; N18.4 Chronic kidney disease, stage 4 (severe); I16.1 Hypertensive emergency; Z20.822 Contact with and (suspected) exposure to COVID-19; D63.8 Anemia in other chronic diseases classified elsewhere; E11.22 Type 2 diabetes mellitus with diabetic chronic kidney disease; E78.5 Hyperlipidemia, unspecified; G89.4 Chronic pain syndrome; J44.9 Chronic obstructive pulmonary disease, unspecified; G62.9 Polyneuropathy, unspecified; E78.00 Pure hypercholesterolemia, unspecified; I50.9 Heart failure, unspecified; M19.90 Unspecified osteoarthritis, unspecified site; Z79.4 Long term (current) use of insulin; Z82.0 Family history of epilepsy and other diseases of the nervous system; Z82.49 Family history of ischemic heart disease and other diseases of the circulatory system; Z83.3 Family history of diabetes mellitus; Z85.3 Personal history of malignant neoplasm of breast; Z90.11 Acquired absence of right breast and nipple; Z90.49 Acquired absence of other specified parts of digestive tract; Z98.1 Arthrodesis status
CPT/HCPCS: 36415; 36600; 71045; 74176; 76775; 80048; 80053; 81001; 82550; 82570; 82805; 82962; 83036; 83735; 83880; 84100; 84156; 84300; 84443; 84484; 85007; 85025; 85027; 85652; 86038; 87086; 87426; 93005; 93306; 93975; 94640; 96365; 96375; G0378; J0696; J1815; J2405

== ENCOUNTER 2021-02-09 22:45 | Emergency (ER) | payer OTHER, MEDICAID ==
[~2021-02-09] VITALS: Ht 167.6 cm; Wt 76.2 kg
[~2021-02-09 22:45] MED LIST changes: +AMLO-489 PO; +CARV3.1240 PO; -GABA300C10 PO
[2021-02-10 02:10] VITALS: BP 143/95
== END 2021-02-10 02:18 | disposition home or self-care (01) ==
LOC: ER 22:47
DX: U07.1 COVID-19 (principal); M79.10 Myalgia, unspecified site; R11.2 Nausea with vomiting, unspecified; R19.7 Diarrhea, unspecified; I12.9 Hypertensive chronic kidney disease with stage 1 through stage 4 chronic kidney disease, or unspecified chronic kidney disease; E11.22 Type 2 diabetes mellitus with diabetic chronic kidney disease; N18.9 Chronic kidney disease, unspecified; Z98.51 Tubal ligation status; Z90.49 Acquired absence of other specified parts of digestive tract
CPT/HCPCS: 36415; 71045; 87426